=== PATIENT | female | born 1965 | race Caucasian/White ===

== ENCOUNTER → 2020-07-19 | Outpatient (CLI) | payer MEDICARE, MEDICAID ==
--- NOTE | 2020-07-29 12:21 | KCIC ---
Bilateral digital screening mammograms: Reason for examination: Routine screening. Comparison is made to previous studies dated the 20 12/25/2016 and 05/02/2011 Interpretation was made with the benefit of CAD. The skin and nipples show no abnormalities. No abnormal axillary lymph nodes are seen. The breast parenchyma shows scattered fibroglandular density. (Breast density: Category B.) There continue to be small nodular parenchymal densities bilaterally which are stable. There are no new dominant masses, suspicious calcifications or architectural distortions. Impression: No evidence of malignancy. Recommend routine screening. BI-RADS Category 2: Benign. "Our facility is accredited by the [employer] Mammography Program." This patient's information has been entered into a reminder system for the patient to be notified with the results of her examination and a target date for the next mammogram. Electronically signed by: Natalie Booker MD (07/29/2020 12:19 PM) [id number]
== END ==
LOC: KCIC MAMMO 11:14
PROVIDERS: ATTEND Family Medicine
DX: Z12.31 Encounter for screening mammogram for malignant neoplasm of breast (principal)
CPT/HCPCS: 77067

== ENCOUNTER → 2021-01-04 | Outpatient (CLI) | payer OTHER, MEDICARE, MEDICAID ==
[~2021-01-04] MED LIST: BUSP10TA PO; FLUO40CA9 PO; LISI20TA18 PO; MELA10TA PO; PROP20TA PO; QUET100T4 PO
--- NOTE | 2021-01-04 10:47 | RAD ---
EXAM: Lumbar spine, 2 views. HISTORY: Pain. COMPARISON: 10/28/2014. FINDINGS: 2 views of the lumbar spine are obtained. There is S-shaped lumbar scoliosis with levocurva ture centered at L4. There is rightward lateral translation of L3 on L4. There is instrumented intras iza fusion and disc space fusion device placement and instrumented right posterior spinal fusion at L5-S1. There is no evidence of instrumentation loosening. There is laminectomy decompression at L2-L 5. There is mild retrolisthesis of L2 on L3 and L3 on L4. There is degenerative endplate remodeling w ith disc space narrowing and osteophytosis primarily along the right aspect of L2-L3 and left aspects of L3-L4 and L4-L5. This corresponds with the levels of maximum scoliotic concavity. There are surgi navarro clips overlying the pelvis. There are cholecystectomy clips. IMPRESSION: 1. Instrumented anterior and posterior fusion at L5-S1 and laminectomy decompression at L2-L5. 2. Lumbar scoliosis and multilevel listhesis. 3. Multilevel degenerative change, primarily corresponding with levels of maximum scoliotic concavity . Electronically signed by: Modesta Lebron MD (01/04/2021 10:44 AM) [id number]
== END ==
LOC: RAD 10:11
PROVIDERS: ATTEND Family Medicine
DX: M54.5 Low back pain (principal)
CPT/HCPCS: 72100